=== PATIENT | female | born 1960 | race Caucasian/White ===

== ENCOUNTER 2018-07-20 09:00 | Inpatient (IN) ==
[~2018-07-20 09:00] MED LIST: DEXTROSE 50% 25 GM/50 ML SYRINGE IV PRN; GLUCAGON 1 MG VIAL IM PRN; MORPHINE ER 15 MG TABLET PO PRN; tiZANidine 4 MG TABLET PO PRN
[2018-07-20 10:16] LABS: Basophils # 0.1 10*3/uL (0.0-0.2); Basophils % 0.9 % (0.0-0.8); Eosinophils # 0.3 10*3/uL (0.0-0.87); Eosinophils % 2.4 % (0.00-10.9); Hematocrit 45.1 VOL% (35.7-47.0); Hemoglobin 15.3 GM/DL (12.0-16.0); Immature Granulocytes % 0.3 %; Immature Granulocytes Absolute 0.03 #; Lymphocytes # 4.5 10*3/uL (1.4-4.0); Lymphocytes % 42.9 % (21.3-54.2); Mean Corpuscular HGB Conc 33.9 GM/DL (32-36); Mean Corpuscular Hemoglobin 32 PG (27-34); Mean Corpuscular Volume 94.9 FL (87-102); Mean Platelet Volume 10.1 FL (9.6-12.0); Monocytes # 0.4 10*3/uL (0.11-0.8); Monocytes % 4.2 % (1.7-12.7); Neutrophils # 5.2 10*3/uL (1.4-7.4); Neutrophils % 49.3 % (38.7-73.9); Platelet Count 159 T/CUMM (130-400); Red Blood Count 4.75 MC/CUMM (3.8-5.5); Red Cell Distribution Width 12.7 % (9.3-17.3); White Blood Count 10.5 T/CUMM (4-12)
[2018-07-20] MEDS: SODIUM CHLORIDE 0.9% 1,000 ML IV SCH (10:33)
[2018-07-20] MEDS: GABAPENTIN 300 MG CAPSULE PO SCH ×3 (10:34→21:15)
[2018-07-20] MEDS: ASPIRIN EC 81 MG TABLET PO SCH ×2 (10:34→15:06)
[2018-07-20] MEDS: INSULIN GLARGINE 100 UNIT/ML SUBCUT SCH ×2 (10:34→21:16)
[2018-07-20 10:56] LABS: Alanine Aminotransferase 26 U/L (13-56); Albumin 3.7 G/DL (3.4-5.0); Alkaline Phosphatase 81 U/L (45-117); Aspartate Amino Transferase 13 U/L (0-37); Bilirubin,Total < 0.39 MG/DL (0.2-1.0); Blood Urea Nitrogen 7 MG/DL (7-18); Calcium 8.5 MG/DL (8.5-10.1); Glucose 249 MG/DL (74-106); Osmolality,Calculated 275.1 MOS/KG (273-304); Potassium 3.7 MMOL/L (3.5-5.1); Sodium 135 MMOL/L (136-145); Total Protein 7.8 G/DL (6.4-8.3)
[2018-07-20 13:19] LABS: ABG Base Excess 0.2 MMOL/L (-2.5-2.5); ABG HCO3 24.6 MMOL/L (20-26); ABG Oxygen Saturation 96.9 % (95-100); ABG PH 7.432 (7.35-7.45); ABG PO2 82.1 MM HG (80-95); ABG TCO2 20.3 MMOL/L (23-27)
[2018-07-20] MEDS ORDERED: ZALEPLON 5 MG CAPSULE PO PRN (14:06)
[2018-07-20] MEDS: NICOTINE 21 MG/24 HR PATCH TRANSDERM SCH (15:05)
[2018-07-20] MEDS: CHLORHEXIDINE 4% SOLN 118 ML BOTTLE TOP SCH (15:06)
[2018-07-20] MEDS ORDERED: LORazepam 1 MG TABLET PO ONE (16:18)
[2018-07-20] MEDS ORDERED: FLUoxetine 20 MG CAPSULE PO SCH (21:00)
[2018-07-20] MEDS: CHLORHEXIDINE 0.12% ORAL RINSE 60 ML BOTTLE SWISH/SPIT SCH (21:16)
[2018-07-21] MEDS: CHLORHEXIDINE 4% SOLN 118 ML BOTTLE TOP SCH ×2 (01:31→13:28)
[2018-07-21] MEDS ORDERED: PAPAVERINE 60 MG/2 ML VIAL ONE (04:25)
[2018-07-21] MEDS ORDERED: VANCOMYCIN 1,000 MG VIAL ONE ×3 (04:25→07:55)
[2018-07-21] MEDS: SODIUM CHLORIDE 0.9% 1,000 ML IV SCH ×2 (04:30→13:30)
[2018-07-21] MEDS ORDERED: CEFUROXIME INJ 1,500 MG in SYRINGE 1 EACH IV ONE (05:00)
[2018-07-21] MEDS ORDERED: SUFentanil 250 MCG/5 ML AMP ONE (05:53)
[2018-07-21] MEDS ORDERED: HEPARIN/NACL 0.9% 2 UNITS/ML 500 ML IV ONE (05:53)
[2018-07-21] MEDS ORDERED: MIDAZOLAM 10 MG/2 ML VIAL ONE (05:54)
[2018-07-21] MEDS ORDERED: LORazepam 1 MG TABLET PO ONE (06:00)
[2018-07-21 07:38] LABS: ABG Base Excess -4.2 MMOL/L (-2.5-2.5); ABG PCO2 34.9 MM HG (35-48); ABG PH 7.373 (7.35-7.45); ABG TCO2 17.5 MMOL/L (23-27); Glucose Heart Surgery 203 MG/DL (74-106); Hematocrit Heart Surgery 43.1 PERCENT (37-47); Hemoglobin Heart Surgery 14.1 G/DL (12.0-16.0); Ionized Calcium Arterial 1.13 MMOL/L (1.21-1.46); PCO2 Patient Temp Arterial 34.9 MMHG; PH Patient Temp Arterial 7.373; Patient Temperature 37 CELCIUS; Potassium Heart/CVR 3.8 MMOL/L (3.5-5.1); Sodium Heart/CVR 137 MMOL/L (135-145)
[2018-07-21] MEDS ORDERED: FENOFIBRATE 160 MG TABLET PO SCH (09:00)
[2018-07-21 09:03] LABS: Apearance,Urine CLOUDY (Clear); Bacteria,Urine Moderate /HPF (Few); Bilirubin,Urine Negative (Negative); Blood, Urine Small mg/dL (Negative); Glucose,Urine (UA) 150 mg/dL (Negative); Ketones,Urine Negative (Negative); Mucus,Urine Occasional /LPF (Occasional); Nitrite,Urine Negative (Negative); Protein,Urine Negative; RBC,Urine 2 /HPF (0-4); Squamous Epithelial Cell,Urine Occasional /HPF (0-10); Urine Color Yellow (Yellow); Urine Specific Gravity 1.016 (1.001-1.035); Urine Urobilinogen < 2.0 EU/DL (0.2-1.0); WBC,Urine 135 /HPF (0-6)
[2018-07-21 09:33] LABS: Hematocrit Heart Surgery 27.1 PERCENT (37-47); Hemoglobin Heart Surgery 8.7 G/DL (12.0-16.0); PCO2 Patient Temp Venous 38.6 MM HG; PH Patient Temp Venous 7.35; PO2 Patient Temp Venous 36.8 MM HG; Potassium Heart/CVR 4.9 MMOL/L (3.5-5.1); VBG Base Excess -3.8 MEQ/L (0-4); VBG HCO3 20.9 MEQ/L (24-28); VBG Oxygen Saturation 74.9 %; VBG PCO2 42.6 MMHG (41-51); VBG PH 7.322; VBG PO2 42.2 MMHG (17-40)
[2018-07-21] MEDS ORDERED: POTASSIUM CHLORIDE RIDER 100 ML IV ONE (09:47)
[2018-07-21] MEDS ORDERED: PHENYLEPHRINE DRIP 40 MG/250 ML PREMIX IV ONE (09:47)
[2018-07-21] MEDS ORDERED: ALBUMIN 5% 12.5 GM/250 ML VIAL IV ONE (09:47)
[2018-07-21 10:06] LABS: Hemoglobin Heart Surgery 9.6 G/DL (12.0-16.0); PCO2 Patient Temp Venous 36.1 MM HG; PH Patient Temp Venous 7.441; PO2 Patient Temp Venous 39.8 MM HG; Potassium Heart/CVR 4.6 MMOL/L (3.5-5.1); VBG Base Excess -0.1 MEQ/L (0-4); VBG HCO3 24.8 MEQ/L (24-28); VBG Oxygen Saturation 82.4 %; VBG PCO2 41.2 MMHG (41-51); VBG PH 7.397; VBG PO2 49.1 MMHG (17-40)
[2018-07-21 10:36] LABS: Hemoglobin Heart Surgery 10.2 G/DL (12.0-16.0); PCO2 Patient Temp Venous 43.1 MM HG; PH Patient Temp Venous 7.356; PO2 Patient Temp Venous 42.3 MM HG; Potassium Heart/CVR 5.2 MMOL/L (3.5-5.1); VBG Base Excess -1.9 MEQ/L (0-4); VBG HCO3 23.6 MEQ/L (24-28); VBG Oxygen Saturation 73.6 %; VBG PCO2 43.1 MMHG (41-51); VBG PH 7.356; VBG PO2 42.3 MMHG (17-40)
[2018-07-21] MEDS ORDERED: MANNITOL 100 GM/500 ML BAG IV ONE (10:54)
[2018-07-21] MEDS ORDERED: ALBUMIN 25% 25 GM/100 ML VIAL IV ONE (10:54)
[2018-07-21] MEDS ORDERED: DEXTROSE 5% KCL 20 MEQ 20 MEQ/1,000 ML BAG IV ONE (10:54)
[2018-07-21] MEDS ORDERED: SODIUM BICARBONATE 50 MEQ/50 ML SYRINGE IV ONE ×2 (10:54→11:57)
[2018-07-21] MEDS ORDERED: PHENYLEPHRINE 1 MG/10 ML SYRINGE IV ONE ×2 (10:55→11:59)
[2018-07-21] MEDS ORDERED: methylPREDNISolone SOD SUC 1,000 MG/8 ML VIAL ONE (10:55)
[2018-07-21] MEDS ORDERED: MAGNESIUM SULFATE 10 GM/20 ML VIAL IV ONE (10:55)
[2018-07-21] MEDS ORDERED: FUROSEMIDE 20 MG/2 ML VIAL ONE (10:55)
[2018-07-21] MEDS ORDERED: HEPARIN 10,000 UNIT/10 ML VIAL ONE (10:55)
[2018-07-21] MEDS ORDERED: PROTAMINE SULFATE 250 MG/25 ML VIAL IV ONE (10:55)
[2018-07-21 11:06] LABS: ABG Base Excess -2.3 MMOL/L (-2.5-2.5); ABG HCO3 22.5 MMOL/L (20-26); ABG Oxygen Saturation 99.4 % (95-100); ABG PCO2 42.9 MM HG (35-48); ABG PH 7.344 (7.35-7.45); ABG TCO2 21.3 MMOL/L (23-27); Glucose Heart Surgery 319 MG/DL (74-106); Hematocrit Heart Surgery 31.8 PERCENT (37-47); Hemoglobin Heart Surgery 10.3 G/DL (12.0-16.0); Ionized Calcium Arterial 1.24 MMOL/L (1.21-1.46); PCO2 Patient Temp Arterial 42.9 MMHG; PH Patient Temp Arterial 7.344; Patient Temperature 37 CELCIUS; Potassium Heart/CVR 4.1 MMOL/L (3.5-5.1); Sodium Heart/CVR 137 MMOL/L (135-145)
[2018-07-21] MEDS: LACTATED RINGERS 1,000 ML IV PRN ×2 (11:45→14:12)
[2018-07-21] MEDS ORDERED: SEVOFLURANE 1 UNIT/15 MINUTE INH ONE (11:57)
[2018-07-21] MEDS ORDERED: PHENYLEPHRINE DRIP 20 MG/250 ML PREMIX IV ONE (11:57)
[2018-07-21] MEDS ORDERED: CALCIUM CHLORIDE 1,000 MG/10 ML VIAL IV ONE (11:57)
[2018-07-21] MEDS ORDERED: MIDAZOLAM 2 MG/2 ML VIAL ONE ×2 (11:58→12:24)
[2018-07-21] MEDS ORDERED: ESMOLOL 100 MG/10 ML VIAL IV ONE (11:58)
[2018-07-21] MEDS ORDERED: ETOMIDATE 40 MG/20 ML VIAL IV ONE (11:58)
[2018-07-21] MEDS ORDERED: NITROGLYCERIN DRIP 50 MG/250 ML BOTTLE IV ONE ×2 (11:58→13:40)
[2018-07-21] MEDS ORDERED: VECURONIUM 10 MG VIAL IV ONE (11:58)
[2018-07-21] MEDS ORDERED: AMINOCAPROIC ACID 5,000 MG/20 ML VIAL ONE (11:59)
[2018-07-21 12:06] LABS: ABG Base Excess -0.6 MMOL/L (-2.5-2.5); ABG HCO3 23.9 MMOL/L (20-26); ABG Oxygen Saturation 96.8 % (95-100); ABG PCO2 43.3 MM HG (35-48); ABG PH 7.367 (7.35-7.45); ABG TCO2 22.2 MMOL/L (23-27); Glucose Heart Surgery 271 MG/DL (74-106); Hematocrit Heart Surgery 36.4 PERCENT (37-47); Hemoglobin Heart Surgery 11.8 G/DL (12.0-16.0); Potassium Heart/CVR 3.7 MMOL/L (3.5-5.1)
[2018-07-21] MEDS ORDERED: ACETAMINOPHEN 650 MG SUPP RECTAL PRN (12:12)
[2018-07-21] MEDS ORDERED: MAGNESIUM SULF RIDER 2 GM in PREMIX 1 EACH IV PRN (12:12)
[2018-07-21] MEDS ORDERED: MAGNESIUM SULF RIDER 4 GM in PREMIX 1 EACH IV PRN (12:12)
[2018-07-21] MEDS ORDERED: MIDAZOLAM 10 MG/2 ML VIAL IV PRN (12:12)
[2018-07-21] MEDS ORDERED: DEXTROSE 50% 25 GM/50 ML SYRINGE IV PRN ×2 (12:12)
[2018-07-21] MEDS ORDERED: LACTATED RINGERS 250 ML IV PRN (12:12)
[2018-07-21] MEDS ORDERED: VECURONIUM 10 MG VIAL IV PRN ×2 (12:12)
[2018-07-21] MEDS ORDERED: INSULIN REGULAR 100 UNIT/ML IV PRN (12:12)
[2018-07-21] MEDS ORDERED: ONDANSETRON 4 MG/2 ML VIAL IV PRN (12:12)
[2018-07-21] MEDS ORDERED: MORPHINE 10 MG/1 ML VIAL IV PRN (12:12)
[2018-07-21] MEDS ORDERED: ALBUMIN 5% 12.5 GM in PREMIX 1 EACH IV PRN (12:12)
[2018-07-21] MEDS ORDERED: NITROPRUSSIDE 100 MG in DEXTROSE 5% 250 ML IV PRN (12:12)
[2018-07-21] MEDS ORDERED: INSULIN REGULAR 100 UNIT/ML IV ONE (12:12)
[2018-07-21] MEDS ORDERED: PHENYLEPHRINE DRIP 40 MG/250 ML PREMIX IV PRN (12:12)
[2018-07-21] MEDS ORDERED: CALCIUM CHLORIDE 1,000 MG/10 ML SYRINGE IV PRN (12:12)
[2018-07-21 12:19] LABS: Basophils # 0.1 10*3/uL (0.0-0.2); Basophils % 0.5 % (0.0-0.8); Eosinophils # 0.2 10*3/uL (0.0-0.87); Eosinophils % 0.9 % (0.00-10.9); Hematocrit 33.7 VOL% (35.7-47.0); Hemoglobin 11.2 GM/DL (12.0-16.0); Lymphocytes # 2.8 10*3/uL (1.4-4.0); Mean Corpuscular HGB Conc 33.2 GM/DL (32-36); Mean Corpuscular Hemoglobin 32 PG (27-34); Mean Corpuscular Volume 95.7 FL (87-102); Mean Platelet Volume 10.3 FL (9.6-12.0); Monocytes # 0.8 10*3/uL (0.11-0.8); Neutrophils # 15.9 10*3/uL (1.4-7.4); Neutrophils % 79.6 % (38.7-73.9); Platelet Count 159 T/CUMM (130-400); Red Blood Count 3.52 MC/CUMM (3.8-5.5); White Blood Count 19.9 T/CUMM (4-12)
[2018-07-21] MEDS: MIDAZOLAM 2 MG/2 ML VIAL IV PRN (12:25)
[2018-07-21] MEDS: KETOROLAC 30 MG/1 ML VIAL IV SCH ×2 (12:25→17:46)
[2018-07-21] MEDS ORDERED: SODIUM CHLORIDE 0.45% 1,000 ML IV SCH ×2 (12:30)
[2018-07-21 12:31] LABS: INR 1.1; PT Patient Result 11.6 SECS; Partial Thromboplastin Time 24.1 SECS (0-40)
[2018-07-21 12:38] LABS: CKMB % 7.5 %
[2018-07-21 12:51] LABS: Troponin I 2.5 NG/ML (0.00-0.045)
[2018-07-21] MEDS ORDERED: INSULIN REGULAR DRIP 100 ML IV SCH (13:00)
[2018-07-21 13:03] LABS: Albumin 3.1 G/DL (3.4-5.0); Bilirubin,Total 0.6 MG/DL (0.2-1.0); Calcium 8.2 MG/DL (8.5-10.1); Potassium 3.8 MMOL/L (3.5-5.1); Total Protein 5.7 G/DL (6.4-8.3)
[2018-07-21] MEDS: POTASSIUM CHLORIDE RIDER 20 MEQ in PREMIX 1 EACH IV PRN ×4 (13:10→21:39)
[2018-07-21] MEDS: ASPIRIN EC 81 MG TABLET PO SCH (13:28)
[2018-07-21] MEDS: GABAPENTIN 300 MG CAPSULE PO SCH (13:29)
[2018-07-21] MEDS: NICOTINE 21 MG/24 HR PATCH TRANSDERM SCH (13:31)
[2018-07-21] MEDS: CHLORHEXIDINE 0.12% ORAL RINSE 60 ML BOTTLE SWISH/SPIT SCH ×2 (13:31→21:20)
[2018-07-21] MEDS: POTASSIUM CHLORIDE RIDER 10 MEQ in PREMIX 1 EACH IV PRN ×2 (13:43→23:52)
[2018-07-21] MEDS: ALBUTEROL/IPRATROPIUM 3 ML NEB RESP TX SCH ×3 (14:59→23:22)
[2018-07-21] MEDS: MORPHINE 4 MG/1 ML VIAL IV PRN ×2 (16:45→23:08)
[2018-07-21 17:11] LABS: ABG Base Excess -0.8 MMOL/L (-2.5-2.5); ABG HCO3 23.7 MMOL/L (20-26); ABG Oxygen Saturation 97.1 % (95-100); ABG PCO2 39.9 MM HG (35-48); ABG PH 7.388 (7.35-7.45); ABG TCO2 21.4 MMOL/L (23-27); Glucose Heart Surgery 193 MG/DL (74-106); Hematocrit Heart Surgery 35.8 PERCENT (37-47); Hemoglobin Heart Surgery 11.6 G/DL (12.0-16.0); Potassium Heart/CVR 3.3 MMOL/L (3.5-5.1)
[2018-07-21 18:12] LABS: ABG Base Excess 0.1 MMOL/L (-2.5-2.5); ABG HCO3 24.3 MMOL/L (20-26); ABG Oxygen Saturation 95.7 % (95-100); ABG PCO2 38.2 MM HG (35-48); ABG PH 7.422 (7.35-7.45); ABG PO2 82.9 MM HG (80-95); ABG TCO2 25.5 MMOL/L (23-27); Glucose Heart Surgery 167 MG/DL (74-106); Hemoglobin Heart Surgery 11.7 G/DL (12.0-16.0); Potassium Heart/CVR 3.1 MMOL/L (3.5-5.1)
[2018-07-21 21:24] LABS: ABG Base Excess -1.4 MMOL/L (-2.5-2.5); ABG HCO3 23.2 MMOL/L (20-26); ABG Oxygen Saturation 96.2 % (95-100); ABG PCO2 37.9 MM HG (35-48); ABG PH 7.394 (7.35-7.45); ABG PO2 81.3 MM HG (80-95); ABG TCO2 20.6 MMOL/L (23-27); Glucose Heart Surgery 151 MG/DL (74-106); Hematocrit Heart Surgery 36.4 PERCENT (37-47); Hemoglobin Heart Surgery 11.8 G/DL (12.0-16.0); Potassium Heart/CVR 3.7 MMOL/L (3.5-5.1)
[2018-07-21 22:17] LABS: CKMB % 7.5 %
[2018-07-21 22:23] LABS: Troponin I 2.57 NG/ML (0.00-0.045)
[2018-07-21] MEDS ORDERED: FUROSEMIDE 40 MG/4 ML VIAL IV ONE (23:59)
[2018-07-22] MEDS ORDERED: VANCOMYCIN INJ 1,000 MG in SODIUM CHLORIDE 0.9% 250 ML IV SCH (00:05)
[2018-07-22] MEDS: KETOROLAC 30 MG/1 ML VIAL IV SCH ×5 (00:20→23:49)
[2018-07-22] MEDS: ALBUTEROL/IPRATROPIUM 3 ML NEB RESP TX SCH ×3 (03:27→10:55)
[2018-07-22 04:56] LABS: ABG Base Excess -1.3 MMOL/L (-2.5-2.5); ABG HCO3 23.3 MMOL/L (20-26); ABG Oxygen Saturation 97.4 % (95-100); ABG PCO2 36.4 MM HG (35-48); ABG PH 7.407 (7.35-7.45); ABG PO2 90.6 MM HG (80-95); ABG TCO2 20.5 MMOL/L (23-27); Glucose Heart Surgery 151 MG/DL (74-106); Hematocrit Heart Surgery 34.4 PERCENT (37-47); Hemoglobin Heart Surgery 11.2 G/DL (12.0-16.0); Potassium Heart/CVR 3.8 MMOL/L (3.5-5.1)
[2018-07-22 05:06] LABS: Basophils % 0.1 % (0.0-0.8); Eosinophils % 0.1 % (0.00-10.9); Hematocrit 32.4 VOL% (35.7-47.0); Hemoglobin 10.7 GM/DL (12.0-16.0); Immature Granulocytes % 0.7 %; Immature Granulocytes Absolute 0.13 #; Lymphocytes # 2.6 10*3/uL (1.4-4.0); Lymphocytes % 14.2 % (21.3-54.2); Mean Corpuscular Hemoglobin 32 PG (27-34); Mean Corpuscular Volume 96.1 FL (87-102); Mean Platelet Volume 10.6 FL (9.6-12.0); Monocytes # 1.2 10*3/uL (0.11-0.8); Monocytes % 6.6 % (1.7-12.7); Neutrophils # 14.3 10*3/uL (1.4-7.4); Neutrophils % 78.3 % (38.7-73.9); Platelet Count 133 T/CUMM (130-400); Red Blood Count 3.37 MC/CUMM (3.8-5.5); Red Cell Distribution Width 13.3 % (9.3-17.3); White Blood Count 18.3 T/CUMM (4-12)
[2018-07-22 05:24] LABS: Albumin 3.2 G/DL (3.4-5.0); Bilirubin,Direct 0.12 MG/DL (0.0-0.20); Bilirubin,Total 0.5 MG/DL (0.2-1.0); CKMB % 9.4 %; Calcium 8.2 MG/DL (8.5-10.1); Osmolality,Calculated 283.3 MOS/KG (273-304); Potassium 3.9 MMOL/L (3.5-5.1); Total Protein 5.7 G/DL (6.4-8.3)
[2018-07-22 05:27] LABS: Troponin I 5.57 NG/ML (0.00-0.045)
[2018-07-22] MEDS: MORPHINE 4 MG/1 ML VIAL IV PRN (05:43)
[2018-07-22] MEDS: POTASSIUM CHLORIDE RIDER 20 MEQ in PREMIX 1 EACH IV PRN (05:51)
[2018-07-22] MEDS ORDERED: INSULIN REGULAR 100 UNIT/ML SUBCUT SCH (08:00)
[2018-07-22] MEDS: CHLORHEXIDINE 0.12% ORAL RINSE 60 ML BOTTLE SWISH/SPIT SCH ×2 (08:51→20:45)
[2018-07-22] MEDS: MIDAZOLAM 2 MG/2 ML VIAL IV PRN (08:51)
[2018-07-22] MEDS ORDERED: tiZANidine 4 MG TABLET PO PRN (09:12)
[2018-07-22] MEDS ORDERED: ONDANSETRON 4 MG/2 ML VIAL IV PRN (11:12)
[2018-07-22] MEDS ORDERED: DEXTROSE 50% 25 GM/50 ML VIAL IV PRN (11:12)
[2018-07-22] MEDS ORDERED: ZALEPLON 5 MG CAPSULE PO PRN (11:12)
[2018-07-22] MEDS ORDERED: MAGNESIUM HYDROXIDE SUSP 30 ML UDCUP PO PRN (11:12)
[2018-07-22] MEDS ORDERED: GLUCAGON 1 MG VIAL IM PRN ×2 (11:12)
[2018-07-22] MEDS ORDERED: SODIUM CHLOR 0.45% KCL 20 MEQ 20 MEQ/1,000 ML BAG IV SCH (11:12)
[2018-07-22] MEDS ORDERED: MAGNESIUM SULF RIDER 2 GM in PREMIX 1 EACH IV PRN (11:12)
[2018-07-22] MEDS ORDERED: ALUMINUM/MAGNES/SIMETH MAX STR 30 ML UDCUP PO PRN (11:12)
[2018-07-22] MEDS ORDERED: DEXTROSE 50% 25 GM/50 ML SYRINGE IV PRN (11:12)
[2018-07-22] MEDS ORDERED: MAGNESIUM SULF RIDER 4 GM in PREMIX 1 EACH IV PRN (11:12)
[2018-07-22] MEDS: GABAPENTIN 300 MG CAPSULE PO SCH ×3 (11:48→20:44)
[2018-07-22] MEDS: FENOFIBRATE 160 MG TABLET PO SCH (11:52)
[2018-07-22] MEDS: LEVOFLOXACIN 500 MG TABLET PO SCH (12:18)
[2018-07-22] MEDS: oxyCODONE/ACETAMINOPHEN 5-325 MG TABLET PO PRN ×3 (12:31→20:44)
[2018-07-22] MEDS: INSULIN REGULAR 100 UNIT/ML SUBCUT SCH ×2 (16:45→20:44)
[2018-07-22] MEDS: FLUoxetine 20 MG CAPSULE PO SCH (20:44)
[2018-07-22] MEDS: INSULIN GLARGINE 100 UNIT/ML SUBCUT SCH (20:45)
[2018-07-23] MEDS: INSULIN REGULAR 100 UNIT/ML SUBCUT SCH ×6 (01:50→21:00)
[2018-07-23] MEDS: KETOROLAC 30 MG/1 ML VIAL IV SCH ×4 (04:55→22:52)
[2018-07-23] MEDS: oxyCODONE/ACETAMINOPHEN 5-325 MG TABLET PO PRN ×5 (05:17→18:18)
[2018-07-23 05:26] LABS: Basophils % 0.3 % (0.0-0.8); Eosinophils % 0.2 % (0.00-10.9); Hematocrit 28.7 VOL% (35.7-47.0); Hemoglobin 9.4 GM/DL (12.0-16.0); Immature Granulocytes % 0.7 %; Lymphocytes # 4.8 10*3/uL (1.4-4.0); Lymphocytes % 31.5 % (21.3-54.2); Mean Corpuscular HGB Conc 32.8 GM/DL (32-36); Mean Corpuscular Hemoglobin 32 PG (27-34); Mean Platelet Volume 10.7 FL (9.6-12.0); Monocytes # 0.8 10*3/uL (0.11-0.8); Monocytes % 5.3 % (1.7-12.7); Neutrophils # 9.4 10*3/uL (1.4-7.4); Platelet Count 115 T/CUMM (130-400); Red Blood Count 2.93 MC/CUMM (3.8-5.5); Red Cell Distribution Width 13.3 % (9.3-17.3); White Blood Count 15.2 T/CUMM (4-12)
[2018-07-23 05:37] LABS: Albumin 2.8 G/DL (3.4-5.0); Bilirubin,Direct 0.11 MG/DL (0.0-0.20); Bilirubin,Indirect 0.3 MG/DL (0.0-1.0); Bilirubin,Total 0.4 MG/DL (0.2-1.0); CKMB % 4.7 %; Calcium 8.2 MG/DL (8.5-10.1); Osmolality,Calculated 283.3 MOS/KG (273-304); Potassium 3.8 MMOL/L (3.5-5.1); Total Protein 5.8 G/DL (6.4-8.3)
[2018-07-23 05:41] LABS: Troponin I 6.53 NG/ML (0.00-0.045)
[2018-07-23] MEDS ORDERED: FUROSEMIDE 40 MG/4 ML VIAL IV ONE (06:00)
[2018-07-23] MEDS: POTASSIUM CHLORIDE 20 MEQ TABLET PO PRN ×2 (10:00→17:16)
[2018-07-23] MEDS: LEVOFLOXACIN 500 MG TABLET PO SCH (10:00)
[2018-07-23] MEDS: DOCUSATE SODIUM 100 MG CAPSULE PO SCH (10:00)
[2018-07-23] MEDS: PANTOPRAZOLE 40 MG TABLET PO SCH (10:00)
[2018-07-23] MEDS: FERROUS SULFATE 325 MG TABLET PO SCH (10:00)
[2018-07-23] MEDS: GABAPENTIN 300 MG CAPSULE PO SCH ×3 (10:00→20:59)
[2018-07-23] MEDS: FENOFIBRATE 160 MG TABLET PO SCH (10:00)
[2018-07-23] MEDS: ASPIRIN EC 325 MG TABLET PO SCH (10:00)
[2018-07-23] MEDS: CHLORHEXIDINE 0.12% ORAL RINSE 60 ML BOTTLE SWISH/SPIT SCH ×2 (10:02→21:02)
[2018-07-23] MEDS: FLUoxetine 20 MG CAPSULE PO SCH (20:59)
[2018-07-23] MEDS: INSULIN GLARGINE 100 UNIT/ML SUBCUT SCH (20:59)
[2018-07-24] MEDS: INSULIN REGULAR 100 UNIT/ML SUBCUT SCH ×6 (00:18→23:09)
[2018-07-24] MEDS: oxyCODONE/ACETAMINOPHEN 5-325 MG TABLET PO PRN ×4 (04:04→21:55)
[2018-07-24 04:37] LABS: Basophils # 0.1 10*3/uL (0.0-0.2); Basophils % 0.4 % (0.0-0.8); Eosinophils # 0.1 10*3/uL (0.0-0.87); Eosinophils % 0.8 % (0.00-10.9); Hematocrit 29.6 VOL% (35.7-47.0); Hemoglobin 9.6 GM/DL (12.0-16.0); Immature Granulocytes % 0.7 %; Immature Granulocytes Absolute 0.09 #; Lymphocytes # 4.7 10*3/uL (1.4-4.0); Lymphocytes % 36.2 % (21.3-54.2); Mean Corpuscular HGB Conc 32.4 GM/DL (32-36); Mean Corpuscular Hemoglobin 32 PG (27-34); Monocytes # 0.6 10*3/uL (0.11-0.8); Monocytes % 4.4 % (1.7-12.7); Neutrophils # 7.4 10*3/uL (1.4-7.4); Neutrophils % 57.5 % (38.7-73.9); Platelet Count 132 T/CUMM (130-400); Red Blood Count 3.02 MC/CUMM (3.8-5.5); Red Cell Distribution Width 13.2 % (9.3-17.3); White Blood Count 12.9 T/CUMM (4-12)
[2018-07-24 05:07] LABS: Alanine Aminotransferase 27 U/L (13-56); Albumin 2.8 G/DL (3.4-5.0); Alkaline Phosphatase 50 U/L (45-117); Aspartate Amino Transferase 38 U/L (0-37); Bilirubin,Indirect 0.7 MG/DL (0.0-1.0); Blood Urea Nitrogen 13 MG/DL (7-18); Calcium 8.3 MG/DL (8.5-10.1); Glucose 171 MG/DL (74-106); Osmolality,Calculated 282.4 MOS/KG (273-304); Potassium 3.8 MMOL/L (3.5-5.1); Sodium 140 MMOL/L (136-145)
[2018-07-24] MEDS: KETOROLAC 30 MG/1 ML VIAL IV SCH ×3 (06:10→16:44)
[2018-07-24] MEDS: LEVOFLOXACIN 500 MG TABLET PO SCH (09:58)
[2018-07-24] MEDS: ASPIRIN EC 325 MG TABLET PO SCH (09:58)
[2018-07-24] MEDS: FERROUS SULFATE 325 MG TABLET PO SCH (09:58)
[2018-07-24] MEDS: PANTOPRAZOLE 40 MG TABLET PO SCH (09:58)
[2018-07-24] MEDS: DOCUSATE SODIUM 100 MG CAPSULE PO SCH (09:58)
[2018-07-24] MEDS: FENOFIBRATE 160 MG TABLET PO SCH (09:58)
[2018-07-24] MEDS: GABAPENTIN 300 MG CAPSULE PO SCH ×3 (09:58→21:56)
[2018-07-24] MEDS: CHLORHEXIDINE 0.12% ORAL RINSE 60 ML BOTTLE SWISH/SPIT SCH ×2 (09:59→21:56)
[2018-07-24] MEDS: FLUoxetine 20 MG CAPSULE PO SCH (21:55)
[2018-07-24] MEDS: INSULIN GLARGINE 100 UNIT/ML SUBCUT SCH (23:09)
[2018-07-25] MEDS: KETOROLAC 30 MG/1 ML VIAL IV SCH ×2 (02:36→06:35)
[2018-07-25] MEDS: INSULIN REGULAR 100 UNIT/ML SUBCUT SCH ×5 (02:36→22:38)
[2018-07-25] MEDS: oxyCODONE/ACETAMINOPHEN 5-325 MG TABLET PO PRN ×3 (06:36→16:43)
[2018-07-25] MEDS: GABAPENTIN 300 MG CAPSULE PO SCH ×3 (10:01→22:39)
[2018-07-25] MEDS: LEVOFLOXACIN 500 MG TABLET PO SCH (10:01)
[2018-07-25] MEDS: PANTOPRAZOLE 40 MG TABLET PO SCH (10:01)
[2018-07-25] MEDS: CHLORHEXIDINE 0.12% ORAL RINSE 60 ML BOTTLE SWISH/SPIT SCH ×2 (10:01→22:39)
[2018-07-25] MEDS: FERROUS SULFATE 325 MG TABLET PO SCH (10:01)
[2018-07-25] MEDS: DOCUSATE SODIUM 100 MG CAPSULE PO SCH (10:01)
[2018-07-25] MEDS: FENOFIBRATE 160 MG TABLET PO SCH (10:01)
[2018-07-25] MEDS: ASPIRIN EC 325 MG TABLET PO SCH (10:01)
[2018-07-25] MEDS: SODIUM CHLORIDE 0.9% 500 ML IV SCH ×2 (21:00→23:03)
[2018-07-25] MEDS ORDERED: SODIUM CHLORIDE 0.9% 1,000 ML IV SCH (21:30)
[2018-07-25] MEDS: FLUoxetine 20 MG CAPSULE PO SCH (22:38)
[2018-07-25] MEDS: INSULIN GLARGINE 100 UNIT/ML SUBCUT SCH (22:38)
[2018-07-25] MEDS ORDERED: traMADol 50 MG TABLET PO PRN (23:13)
[2018-07-26] MEDS: ACETAMINOPHEN 325 MG TABLET PO PRN ×2 (01:00→18:17)
[2018-07-26 01:49] LABS: Apearance,Urine CLEAR (Clear); Bilirubin,Urine Negative (Negative); Blood, Urine Small mg/dL (Negative); Glucose,Urine (UA) >=500 mg/dL (Negative); Hyaline Casts,Urine 5 /LPF (0-3); Ketones,Urine Negative (Negative); Mucus,Urine Occasional /LPF (Occasional); Nitrite,Urine Negative (Negative); Protein,Urine Negative; RBC,Urine 5 /HPF (0-4); Squamous Epithelial Cell,Urine Occasional /HPF (0-10); Urine Color Yellow (Yellow); Urine Specific Gravity 1.017 (1.001-1.035); Urine Urobilinogen < 2.0 EU/DL (0.2-1.0); WBC,Urine 3 /HPF (0-6)
[2018-07-26] MEDS: GENTAMICIN INJ 80 MG in PREMIX 1 EACH IV SCH ×3 (02:29→17:00)
[2018-07-26 04:19] LABS: Basophils % 0.3 % (0.0-0.8); Eosinophils # 0.2 10*3/uL (0.0-0.87); Eosinophils % 2.1 % (0.00-10.9); Hematocrit 28.9 VOL% (35.7-47.0); Hemoglobin 9.5 GM/DL (12.0-16.0); Immature Granulocytes % 0.4 %; Immature Granulocytes Absolute 0.04 #; Lymphocytes % 36.6 % (21.3-54.2); Mean Corpuscular HGB Conc 32.9 GM/DL (32-36); Mean Corpuscular Hemoglobin 32 PG (27-34); Mean Corpuscular Volume 96.7 FL (87-102); Mean Platelet Volume 10.8 FL (9.6-12.0); Monocytes # 0.6 10*3/uL (0.11-0.8); Monocytes % 5.3 % (1.7-12.7); Neutrophils % 55.3 % (38.7-73.9); Platelet Count 154 T/CUMM (130-400); Red Blood Count 2.99 MC/CUMM (3.8-5.5); White Blood Count 10.9 T/CUMM (4-12)
[2018-07-26 04:43] LABS: Alanine Aminotransferase 16 U/L (13-56); Albumin 2.4 G/DL (3.4-5.0); Alkaline Phosphatase 52 U/L (45-117); Aspartate Amino Transferase 20 U/L (0-37); Bilirubin,Indirect 0.4 MG/DL (0.0-1.0); Blood Urea Nitrogen 7 MG/DL (7-18); Calcium 8.3 MG/DL (8.5-10.1); Glucose 147 MG/DL (74-106); Osmolality,Calculated 279.4 MOS/KG (273-304); Potassium 3.4 MMOL/L (3.5-5.1); Sodium 140 MMOL/L (136-145); Total Protein 5.8 G/DL (6.4-8.3)
[2018-07-26] MEDS: LEVOFLOXACIN 500 MG TABLET PO SCH (08:45)
[2018-07-26] MEDS: DOCUSATE SODIUM 100 MG CAPSULE PO SCH (08:45)
[2018-07-26] MEDS: FENOFIBRATE 160 MG TABLET PO SCH (08:45)
[2018-07-26] MEDS: GABAPENTIN 300 MG CAPSULE PO SCH ×3 (08:45→20:54)
[2018-07-26] MEDS: PANTOPRAZOLE 40 MG TABLET PO SCH (08:45)
[2018-07-26] MEDS: FERROUS SULFATE 325 MG TABLET PO SCH (08:45)
[2018-07-26] MEDS: ASPIRIN EC 325 MG TABLET PO SCH (08:46)
[2018-07-26] MEDS: INSULIN REGULAR 100 UNIT/ML SUBCUT SCH ×4 (08:47→20:53)
[2018-07-26] MEDS: CHLORHEXIDINE 0.12% ORAL RINSE 60 ML BOTTLE SWISH/SPIT SCH ×2 (09:01→20:54)
[2018-07-26] MEDS: POTASSIUM CHLORIDE 20 MEQ TABLET PO PRN (10:25)
[2018-07-26] MEDS: oxyCODONE/ACETAMINOPHEN 5-325 MG TABLET PO PRN ×3 (10:26→22:13)
[2018-07-26] MEDS: INSULIN GLARGINE 100 UNIT/ML SUBCUT SCH (20:53)
[2018-07-26] MEDS: FLUoxetine 20 MG CAPSULE PO SCH (20:54)
[2018-07-27] MEDS: GENTAMICIN INJ 80 MG in PREMIX 1 EACH IV SCH ×3 (01:00→17:25)
[2018-07-27 03:53] LABS: Basophils # 0.1 10*3/uL (0.0-0.2); Basophils % 0.5 % (0.0-0.8); Eosinophils # 0.4 10*3/uL (0.0-0.87); Eosinophils % 3.3 % (0.00-10.9); Hematocrit 31.2 VOL% (35.7-47.0); Hemoglobin 10.6 GM/DL (12.0-16.0); Immature Granulocytes % 0.6 %; Immature Granulocytes Absolute 0.06 #; Lymphocytes % 36.8 % (21.3-54.2); Mean Corpuscular Hemoglobin 32 PG (27-34); Mean Corpuscular Volume 94.8 FL (87-102); Mean Platelet Volume 10.1 FL (9.6-12.0); Monocytes # 0.7 10*3/uL (0.11-0.8); Monocytes % 6.2 % (1.7-12.7); Neutrophils # 5.7 10*3/uL (1.4-7.4); Neutrophils % 52.6 % (38.7-73.9); Platelet Count 191 T/CUMM (130-400); Red Blood Count 3.29 MC/CUMM (3.8-5.5); White Blood Count 10.9 T/CUMM (4-12)
[2018-07-27 04:28] LABS: Alanine Aminotransferase 16 U/L (13-56); Albumin 2.7 G/DL (3.4-5.0); Alkaline Phosphatase 60 U/L (45-117); Aspartate Amino Transferase 16 U/L (0-37); Bilirubin,Indirect 0.5 MG/DL (0.0-1.0); Blood Urea Nitrogen 7 MG/DL (7-18); Calcium 8.7 MG/DL (8.5-10.1); Glucose 124 MG/DL (74-106); Osmolality,Calculated 275.5 MOS/KG (273-304); Potassium 3.5 MMOL/L (3.5-5.1); Sodium 139 MMOL/L (136-145); Total Protein 6.7 G/DL (6.4-8.3)
[2018-07-27] MEDS: oxyCODONE/ACETAMINOPHEN 5-325 MG TABLET PO PRN ×4 (06:09→21:00)
[2018-07-27] MEDS: POTASSIUM CHLORIDE 20 MEQ TABLET PO PRN (06:13)
[2018-07-27] MEDS: ASPIRIN EC 325 MG TABLET PO SCH (10:06)
[2018-07-27] MEDS: FENOFIBRATE 160 MG TABLET PO SCH (10:07)
[2018-07-27] MEDS: GABAPENTIN 300 MG CAPSULE PO SCH ×3 (10:07→20:57)
[2018-07-27] MEDS: LEVOFLOXACIN 500 MG TABLET PO SCH (10:07)
[2018-07-27] MEDS: CHLORHEXIDINE 0.12% ORAL RINSE 60 ML BOTTLE SWISH/SPIT SCH ×2 (10:09→20:59)
[2018-07-27] MEDS: FERROUS SULFATE 325 MG TABLET PO SCH (10:09)
[2018-07-27] MEDS: PANTOPRAZOLE 40 MG TABLET PO SCH (10:09)
[2018-07-27] MEDS: DOCUSATE SODIUM 100 MG CAPSULE PO SCH (10:13)
[2018-07-27] MEDS: INSULIN REGULAR 100 UNIT/ML SUBCUT SCH ×4 (10:14→21:06)
[2018-07-27] MEDS: FLUoxetine 20 MG CAPSULE PO SCH (20:57)
[2018-07-27] MEDS: INSULIN GLARGINE 100 UNIT/ML SUBCUT SCH (21:59)
[2018-07-28] MEDS: GENTAMICIN INJ 80 MG in PREMIX 1 EACH IV SCH ×2 (01:27→09:43)
[2018-07-28] MEDS: oxyCODONE/ACETAMINOPHEN 5-325 MG TABLET PO PRN (05:32)
[2018-07-28 08:28] VITALS: BP 111/60
[2018-07-28] MEDS: INSULIN REGULAR 100 UNIT/ML SUBCUT SCH (09:41)
[2018-07-28] MEDS: ASPIRIN EC 325 MG TABLET PO SCH (09:42)
[2018-07-28] MEDS: FENOFIBRATE 160 MG TABLET PO SCH (09:42)
[2018-07-28] MEDS: CHLORHEXIDINE 0.12% ORAL RINSE 60 ML BOTTLE SWISH/SPIT SCH (09:42)
[2018-07-28] MEDS: DOCUSATE SODIUM 100 MG CAPSULE PO SCH (09:42)
[2018-07-28] MEDS: PANTOPRAZOLE 40 MG TABLET PO SCH (09:42)
[2018-07-28] MEDS: LEVOFLOXACIN 500 MG TABLET PO SCH (09:42)
[2018-07-28] MEDS: GABAPENTIN 300 MG CAPSULE PO SCH (09:42)
[2018-07-28] MEDS: FERROUS SULFATE 325 MG TABLET PO SCH (09:42)
== END 2018-07-28 11:18 | disposition home or self-care (01) | DRG 236 ==
LOC: N.4E 09:00 → N.CVR 07-21 09:16 → N.TELES 07-22 11:10